=== PATIENT | female | born 1990 | race Asian ===

== ENCOUNTER 2023-04-24 09:30 | Inpatient (IN) | payer BC ==
[2023-04-24] MEDS ORDERED: Zolpidem Tartrate 5 MG TAB PO PRN (18:02)
[2023-04-24] MEDS ORDERED: Lidocaine 1% (PF) 30 ML VIAL SC PRN (18:02)
[2023-04-24] MEDS ORDERED: Ondansetron PF 4 MG/2 ML Vial IVP PRN (18:02)
[2023-04-24] MEDS ORDERED: Misoprostol 200 MCG TAB PR PRN (18:02)
[2023-04-24] MEDS ORDERED: Ibuprofen 800 MG TAB PO PRN (18:02)
[2023-04-24] MEDS ORDERED: Carboprost 250 MCG/ML AMP IM PRN (18:02)
[2023-04-24] MEDS ORDERED: Methylergonovine 0.2 MG/ML VIAL IM PRN (18:02)
[2023-04-24] MEDS ORDERED: fentaNYL 50 mcg/mL 1 mL Vial SLOW IVP PRN (18:02)
[2023-04-24] MEDS ORDERED: Diphenoxylate HCl/Atropine Tablet PO PRN ×2 (18:02)
[2023-04-24] MEDS ORDERED: Acetaminophen 500 MG TAB PO PRN (18:02)
[2023-04-24] MEDS ORDERED: Tranexamic Acid 1,000 MG/10 ML VIAL IVP PRN (18:02)
[2023-04-24] MEDS ORDERED: HYDROcodone/Acetaminophen 5/325 mg Tablet PO PRN ×2 (18:02)
[2023-04-24] MEDS ORDERED: Promethazine HCl 25 MG/ML VIAL IM PRN (18:02)
[2023-04-24] MEDS ORDERED: hydrALAZINE 20 MG/ML VIAL SLOW IVP PRN (18:02)
[2023-04-24] MEDS ORDERED: NS w/ Oxytocin 30 units 500 ML IV SCH ×2 (18:15)
[2023-04-24 23:54] VITALS: BMI 27.6
[2023-04-25] MEDS: Lactated Ringer's 1,000 ML IV SCH ×4 (00:30→11:08)
[2023-04-25] MEDS: Misoprostol 100 MCG TAB VAG SCH ×5 (00:52→19:10)
[2023-04-25 01:12] LABS: Hematocrit 38.2 % (34.9-44.5); Hemoglobin 13.5 g/dL (12.0-15.5); Mean Corpuscular HGB CONC 35.3 g/dL (32.0-36.0); Mean Corpuscular Hemoglobin 32.1 pg (27.0-33.0); Mean Platelet Volume 11.6 fl (7.4-10.4); Platelet Count 161 10x3/uL (150-450); RBC Distribution Width 13.1 % (11.5-14.5); White Blood Cell (WBC) Count 8.3 10x3/uL (3.5-10.5)
[2023-04-25 01:45] LABS: HBSAg Index 0.16 S/CO (0-0.99); Hep B Surf Ag - L&D Non-Reactive S/CO (NonReactive); Syphilis Antibody Nonreactive (Nonreactive); Syphilis Antibody Index 0.03 S/CO (<1.00 Non-Reactive)
[2023-04-25] MEDS ORDERED: fentaNYL/Ropivacaine Epidural 100 ML ONE (07:51)
[2023-04-25] MEDS ORDERED: Ondansetron PF 4 MG/2 ML Vial IVP PRN ×2 (08:36→19:07)
[2023-04-25] MEDS ORDERED: Acetaminophen 325 MG TAB PO PRN (08:36)
[2023-04-25] MEDS ORDERED: Promethazine HCl 25 MG/ML VIAL IM PRN ×2 (08:36→19:07)
[2023-04-25] MEDS ORDERED: Moisturizing Cream (Eucerin) 113 GM JAR TOP PRN ×2 (08:36→19:07)
[2023-04-25] MEDS ORDERED: diphenhydrAMINE 50 MG/ML VIAL IVP PRN ×2 (08:36→19:07)
[2023-04-25] MEDS ORDERED: ePHEDrine Sulfate 50 MG/10 ML VIAL SLOW IVP PRN (08:36)
[2023-04-25] MEDS ORDERED: Lactated Ringer's 500 ML IV PRN (08:36)
[2023-04-25] MEDS ORDERED: Naloxone HCl 0.4 mg/ml Vial IVP PRN ×4 (08:36→19:07)
[2023-04-25] MEDS ORDERED: Communication Order-Pharmacy FS SCH ×2 (08:45→19:15)
[2023-04-25] MEDS ORDERED: fentaNYL 2 mcg/Ropivacaine 0.2% Epidural 100 ML CADD EPIDURAL SCH (08:45)
[2023-04-25] MEDS ORDERED: Bupivacaine PF 0.5% 30 ML VIAL ONE (14:00)
[2023-04-25] MEDS ORDERED: Bupivacaine 0.25% HCL 30 ML VIAL ONE (14:00)
[2023-04-25] MEDS ORDERED: Lidocaine 2% MPF 10 ML AMP (For Epidural Use) ONE (14:00)
[2023-04-25] MEDS ORDERED: Famotidine/PF 20 mg/2ml Vial ONE (17:54)
[2023-04-25] MEDS ORDERED: CEFAZOLIN 2 GM VIAL ONE (17:54)
[2023-04-25] MEDS ORDERED: Azithromycin 500 MG VIAL ONE (17:54)
[2023-04-25] MEDS ORDERED: Bicitra 30 ML UDCUP PO PRN (18:03)
[2023-04-25] MEDS ORDERED: Famotidine/PF 20 mg/2ml Vial SLOW IVP PRN (18:03)
[2023-04-25] MEDS ORDERED: PHENYLEPHRINE-NS 100 MCG/ML 10 ML SYRINGE ONE (18:05)
[2023-04-25] MEDS ORDERED: Ondansetron PF 4 MG/2 ML Vial ONE (18:05)
[2023-04-25] MEDS ORDERED: Morphine PF 10 MG/10 ML VIAL ONE (18:05)
[2023-04-25] MEDS ORDERED: Oxytocin 10 UNITS/ML VIAL ONE (18:05)
[2023-04-25] MEDS ORDERED: CEFAZOLIN 2 GM in Sodium Chloride 0.9% 100 ML IVPB SCH (18:15)
[2023-04-25] MEDS ORDERED: Azithromycin 500 MG in Sodium Chloride 0.9% 250 ML 250 ML IVPB SCH (18:15)
[2023-04-25] MEDS ORDERED: hydrALAZINE 20 MG/ML VIAL SLOW IVP PRN (18:21)
[2023-04-25] MEDS ORDERED: Boostrix 0.5 ML (Tdap) VIAL (>/=7 yrs of age) IM ONE (18:21)
[2023-04-25] MEDS ORDERED: Lanolin Ointment 7 GM TUBE TOP PRN (18:21)
[2023-04-25] MEDS ORDERED: fentaNYL 50 mcg/mL 1 mL Vial ONE (18:35)
[2023-04-25] MEDS ORDERED: Midazolam HCl 2 mg/2 ml Vial ONE (18:35)
[2023-04-25] MEDS ORDERED: Meperidine HCl/PF 25 MG/ML VIAL SLOW IVP PRN (19:07)
[2023-04-25] MEDS ORDERED: Naloxone HCl 0.4 mg/ml Vial IV PRN (19:07)
[2023-04-25] MEDS ORDERED: Promethazine HCl 25 MG SUPP PR PRN (19:07)
[2023-04-25] MEDS ORDERED: Ondansetron HCl/PF 4 MG/2 ML Vial IVP PRN (19:07)
[2023-04-25] MEDS ORDERED: Ketorolac Tromethamine 30 MG/ML VIAL IVP PRN (19:07)
[2023-04-25] MEDS ORDERED: Fentanyl 50 MCG/1 ML VIAL SLOW IVP PRN (19:07)
[2023-04-25] MEDS ORDERED: Ketorolac Tromethamine 30 MG/ML VIAL IVP SCH (19:15)
[2023-04-25] MEDS: Docusate 100 MG CAP PO SCH (21:25)
[2023-04-25] MEDS: Ferrous Sulfate 325 MG TAB PO SCH (21:25)
[2023-04-26 05:33] LABS: Hematocrit 35.5 % (34.9-44.5); Hemoglobin 12.3 g/dL (12.0-15.5); Mean Corpuscular HGB CONC 34.6 g/dL (32.0-36.0); Mean Corpuscular Hemoglobin 32.3 pg (27.0-33.0); Mean Corpuscular Volume 93.2 fl (81.6-98.3); Mean Platelet Volume 11.5 fl (7.4-10.4); Platelet Count 148 10x3/uL (150-450); RBC Distribution Width 13.1 % (11.5-14.5); Red Blood Cell (RBC) Count 3.81 10x6/uL (3.90-5.03); White Blood Cell (WBC) Count 14.2 10x3/uL (3.5-10.5)
[2023-04-26] MEDS ORDERED: HYDROcodone/Acetaminophen 5/325 mg Tablet PO PRN (07:15)
[2023-04-26] MEDS: Docusate 100 MG CAP PO SCH ×2 (09:35→21:49)
[2023-04-26] MEDS: Simethicone Chewable 80 MG TAB PO PRN (09:35)
[2023-04-26] MEDS: HYDROcodone/Acetaminophen 5/325 mg Tablet PO PRN ×2 (09:35→16:42)
[2023-04-26] MEDS: Prenatal Vitamin 1 TAB PO SCH (09:35)
[2023-04-26] MEDS: Ferrous Sulfate 325 MG TAB PO SCH (09:36)
[2023-04-26] MEDS: Lactated Ringer's 1,000 ML IV SCH (17:38)
[2023-04-27] MEDS: Ibuprofen 800 MG TAB PO SCH ×3 (06:28→21:48)
[2023-04-27] MEDS: Ferrous Sulfate 325 MG TAB PO SCH ×2 (09:13→21:48)
[2023-04-27] MEDS: HYDROcodone/Acetaminophen 5/325 mg Tablet PO PRN (09:56)
[2023-04-27] MEDS: Prenatal Vitamin 1 TAB PO SCH (09:56)
[2023-04-27] MEDS: Docusate 100 MG CAP PO SCH ×2 (09:56→21:48)
[2023-04-27] MEDS: Simethicone Chewable 80 MG TAB PO PRN (09:56)
[2023-04-28] MEDS: Ibuprofen 800 MG TAB PO SCH ×2 (06:16→14:31)
[2023-04-28] MEDS: Prenatal Vitamin 1 TAB PO SCH (08:32)
[2023-04-28] MEDS: Docusate 100 MG CAP PO SCH (08:32)
[2023-04-28] MEDS: Ferrous Sulfate 325 MG TAB PO SCH (08:32)
[2023-04-28] MEDS: HYDROcodone/Acetaminophen 5/325 mg Tablet PO PRN (08:33)
[2023-04-28 16:54] VITALS: BP 118/72; TEMP 97.9
== END 2023-04-28 15:45 | disposition home or self-care (01) | DRG 788 ==
LOC: CSHLD 23:11 → CSHPP 04-25 21:53
PROVIDERS: ADMIT Obstetrics & Gynecology; ATTEND Obstetrics & Gynecology
PROC: 10D00Z1 Extraction of Products of Conception, Low, Open Approach (ICD-10-PCS; principal; 2023-04-25)
PROC: 3E0P7VZ Introduction of Hormone into Female Reproductive, Via Natural or Artificial Opening (ICD-10-PCS; 2023-04-25)
PROC: 3E033VJ Introduction of Other Hormone into Peripheral Vein, Percutaneous Approach (ICD-10-PCS; 2023-04-25)
DX: O48.0 Post-term pregnancy (principal); O76 Abnormality in fetal heart rate and rhythm complicating labor and delivery; O32.4XX0 Maternal care for high head at term, not applicable or unspecified; O32.8XX0 Maternal care for other malpresentation of fetus, not applicable or unspecified; Z3A.41 41 weeks gestation of pregnancy; Z37.0 Single live birth
CPT/HCPCS: 36415; 51702; 85027; 86780; 86850; 86900; 86901; 87340; J1885; J2250; J2274; J2405; J2590; J3010; J7120; S0020